=== PATIENT | male | born 1970 | race Caucasian/White ===

== ENCOUNTER 2020-03-30 16:13 | Inpatient (IN) | payer OTHER ==
[2020-03-30 17:47] VITALS: BMI 26.0
--- NOTE | 2020-03-30 18:36 | HP ---
COWS - Scale Resting Pulse: 0= [place] 80 or Below Sweatin=Flushed/Facial Moisture Restless Observation: 1= Difficult to Sit Still Pupil Size: 0= Normal to Room Light Bone or Joint Aches: 4=Acute Joint/Muscle Pain Runny Nose/ Eye Tearin= Runny Nose/Eyes GI Upset > 30mins: 2= Nausea/Diarrhea (diarrhea x 2) Tremor Observation: 4= Gross Tremor/Twitching Yawning Observation: 1= 1-2x During Session Anxiety or Irritability: 2=Irritable/Anxious Goose Flesh Skin: 3=Piloerection COWS Score: 21 CIWA Score Nausea/Vomitin Muscle Tremors: 5 Anxiety: 4-Mod. Anxious/Guarded Agitation: 3 Paroxysmal Sweats: 2 Orientation: 0-Oriented Tacttile Disturbances: 0-None Auditory Disturbances: 0-None Visual Disturbances: 0-None Headache: 3-Moderate CIWA-Ar Total Score: 19 - Admission Criteria OASAS Guidelines: Admission for Medically Managed Detox: Requires at least one of the followin. CIWA greater than 12 2. Seizures within the past 24 hours 3. Delirium tremens within the past 24 hours 4. Hallucinations within the past 24 hours 5. Acute intervention needed for co occurring medical disorder 6. Acute intervention needed for co occurring psychiatric disorder 7. Severe withdrawal that cannot be handled at a lower level of care (continued vomiting, continued diarrhea, abnormal vital signs) requiring intravenous medication and/or fluids 8. Admission [facility] Chief Complaint: Seeking admission to detox from alcohol and heroin Allergies/Adverse Reactions: Allergies Allergy/AdvReac Type Severity Reaction Status Date / Time No Known Allergies Allergy Verified 03/30/20 18:34 History of Present Illness: 49 years old male with a long history of alcohol dependence (since age 14 years) and heroin (since age 29 years) is seeking admission to detox. This is his first admission to [facility] and his last detox was at [facility]. He uses 6-8 bags of heroin intravenously and drinks 2 pints of vodka and 2 x 6 packs of malt liquor beer daily. He reports medical history of Hep. C, anemia and denies psych. history and suicidal ideation at this time. 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 He is unemployed, lives with family in [place] and denies legal issues at this time. Exam Limitations: No Limitations - Ebola screening Have you traveled outside of the country in the last 21 days: No Have you had contact with anyone from an Ebola affected area: No Have you been sick,other than usual withdrawal symptoms: No Do you have a fever: No - Review of Systems Constitutional: Chills, Malaise, Night Sweats, Changes in sleep EENT: reports: Nose Congestion Respiratory: reports: No Symptoms reported Cardiac: reports: No Symptoms Reported GI: reports: Diarrhea (x 2), Nausea, Poor Fluid Intake, Abdominal cramping : reports: No Symptoms Reported Musculoskeletal: reports: Back Pain, Muscle Pain Integumentary: reports: Dryness, Flushing Neuro: reports: Headache, Tremors Endocrine: reports: No Symptoms Reported Hematology: reports: No Symptoms Reported Psychiatric: reports: Mood/Affect Appropiate, Orientated x3 Other Systems: Reviewed and Negative Patient History - Patient Medical History Hx Anemia: Yes (Not on medication) Hx Asthma: No Hx Chronic Obstructive Pulmonary Disease (COPD): No Hx Cancer: No Hx Cardiac Disorders: No Hx Congestive Heart Failure: No Hx Hypertension: No Hx Hypercholesterolemia: No HX Cerebrovascular Accident: No Hx Seizures: No Hx Diabetes: No Hx Gastrointestinal Disorders: Yes (GERD) Hx Liver Disease: Yes (Hep. C) Hx Genitourinary Disorders: No Hx Sexually Transmitted Disorders: No Hx Renal Disease (ESRD): No Hx Thyroid Disease: No Hx Human Immunodeficiency Virus (HIV): No (Negative 2018) Hx Hepatitis C: Yes (Not treated) Hx Depression: No Hx Suicide Attempt: No (Denies uicidl ideation at this time) Hx Bipolar Disorder: No Hx Schizophrenia: No - Patient Surgical History Past Surgical History: Yes Hx Neurologic Surgery: No Hx Cataract Extraction: No Hx Cardiac Surgery: No Hx Lung Surgery: Yes (2009) Hx Abdominal Surgery: No Hx Appendectomy: No Hx Cholecystectomy: No Hx Genitourinary Surgery: No Hx Orthopedic Surgery: No Other Surgical History: Anesthesia Reaction: No - PPD History Previous Implant?: Yes Documented Results: Negative w/o proof Implanted On Prior R Admission?: No PPD to be Administered?: Yes - Reproductive History Patient is a Female of Child Bearing Age (11 -55 yrs old): No (Male) - Smoking Cessation Smoking history: Current every day smoker Have you smoked in the past 12 months: Yes Aproximately how many cigarettes per day: 20 Hx Chewing Tobacco Use: No Initiated information on smoking cessation: Yes 'Breaking Loose' booklet given: 03/30/20 - Substance & Tx. History Hx Alcohol Use: Yes Hx Substance Use: Yes Substance Use Type: Alcohol, Cocaine, Heroin, Marijuana Hx Substance Use Treatment: Yes ([facility]) - Substances abused Alcohol Substance route: Oral Frequency: Daily Amount used: 2 Pints Vodka and 2 x 6 packs of malt liquor beer Age of first use: 14 Date of last use: 03/30/20 Heroin Substance route: Injection Frequency: Daily Amount used: 6-8 bags of heroin Age of first use: 29 Date of last use: 03/30/20 Admission Physical Exam [facility] - Vital Signs Vital Signs: Vital Signs - 24 hr 03/30/20 17:45 Temperature 97.3 F L Pulse Rate 72 Respiratory 18 Rate Blood Pressure 120/71 - Physical General Appearance: Yes: Moderate Distress, Tremorous, Sweating, Anxious HEENTM: Yes: Within Normal Limits Respiratory: Yes: Lungs Clear, Normal Breath Sounds, No Respiratory Distress Neck: Yes: Within Normal Limits Breast: Yes: Breast Exam Deferred Cardiology: Yes: Regular Rhythm, Regular Rate Abdominal: Yes: Normal Bowel Sounds, Soft Genitourinary: Yes: Within Normal Limits Back: Yes: Normal Inspection Musculoskeletal: Yes: Back pain, Muscle Pain Extremities: Yes: Tremors Neurological: Yes: Within Normal Limits Integumentary: Yes: Warm, Track Elena (bilateral hands) Lymphatic: Yes: Within Normal Limits Cleared for Admission [facility] - Detox or Rehab [facility] Level of Care: Medically Managed Detox Regimen/Protocol: Methadone/Librium Claeared for Rehab Admission: No Breathalyzer - Breathalyzer Breathalyzer: 0 Urine Drug Screen - Test Device Lot number: [id number] Expiration date: 04/09/22 - Control Is test valid?: Yes - Results Drug screen NEGATIVE: No Urine drug screen results: THC-Marijuana, KARYN-Cocaine, FEN-Fentanyl, MOP- Opiates, BZO-Benzodiazepines Inpatient Rehab Admission - Rehab Decision to Admit Inpatient rehab admission?: No
[2020-03-30] MEDS ORDERED: BISMUTH SUBSALICYLATE 524 MG/30 ML UD PO PRN (19:00)
[2020-03-30] MEDS ORDERED: IBUPROFEN 400 MG TABLET (FP) PO PRN (19:00)
[2020-03-30] MEDS ORDERED: MAGNESIUM CITRATE 300 ML BOTTLE PO PRN (19:00)
[2020-03-30] MEDS ORDERED: ACETAMINOPHEN 325 MG TABLET (FP) PO PRN ×2 (19:00)
[2020-03-30] MEDS ORDERED: hydrOXYzine PAMOATE 25 MG CAPSULE (FP) PO PRN (19:00)
[2020-03-30] MEDS ORDERED: METHOCARBAMOL 500 MG TABLET PO PRN (19:00)
[2020-03-30] MEDS ORDERED: MAGNESIUM HYDROX 2400MG/30ML ORAL SUSPENSION 30 ML CUP PO PRN (19:00)
[2020-03-30] MEDS ORDERED: MENTHOL/PHENOL 1 EACH UD MM PRN (19:00)
[2020-03-30] MEDS ORDERED: MAG HYDROX/AL HYDROX/SIMETH 30 ML UNIT-DOSE CUP PO PRN (19:00)
[2020-03-30] MEDS ORDERED: cloNIDine HCL 0.1 MG TABLET PO PRN (19:00)
[2020-03-30] MEDS ORDERED: NICOTINE POLACRILEX 2 MG GUM BUC PRN (19:00)
[2020-03-30] MEDS ORDERED: ONDANSETRON *ODT* 4 MG TABLET SL ONE (19:30)
[2020-03-30] MEDS: chlordiazePOXIDE HCL 25 MG CAPSULE PO PRN (20:05)
[2020-03-30] MEDS: METHADONE HCL 10 MG TABLET (FOR DETOX USE ONLY) PO ONE ×2 (20:05→20:06)
[2020-03-30] MEDS: MELATONIN 5 MG TABLETS PO SCH (22:27)
[2020-03-30] MEDS: chlordiazePOXIDE HCL 25 MG CAPSULE PO SCH (22:28)
[2020-03-30] MEDS: THIAMINE HCL 100 MG TABLET (FP) PO SCH (22:28)
[2020-03-31] MEDS: chlordiazePOXIDE HCL 25 MG CAPSULE PO SCH ×4 (05:46→22:13)
[2020-03-31] MEDS ORDERED: METHADONE HCL 5 MG TABLET (FOR DETOX USE ONLY) ONE (09:04)
[2020-03-31] MEDS ORDERED: METHADONE HCL 10 MG TABLET (FOR DETOX USE ONLY) ONE (09:04)
[2020-03-31] MEDS ORDERED: METHADONE (DETOX) 20 MG, METHADONE (DETOX) 5 MG PO ONE (10:00)
[2020-03-31] MEDS: PRENATAL VITAMINS W/ FOLIC ACID TABLET (FP) PO SCH (10:14)
[2020-03-31] MEDS: NICOTINE 21 MG/24 HOURS TOPICAL PATCH TD SCH (10:16)
[2020-03-31 12:23] LABS: HEMATOCRIT 33.4 % (35.4-49); HEMOGLOBIN 10.8 GM/dL (11.7-16.9); MCH 26.2 pg (25.7-33.7); MCHC 32.3 g/dl (32.0-35.9); MEAN CELL VOLUME 81.1 fl (80-96); MEAN PLT VOLUME 10.8 fl (7.5-11.1); PLATELET COUNT 223 K/MM3 (134-434); RBC 4.12 M/mm3 (4.00-5.60); RDW 17.5 % (11.9-15.9); WHITE BLOOD COUNT 7.5 K/mm3 (4.0-10.0)
[2020-03-31 12:30] LABS: ALBUMIN 3.2 g/dl (3.4-5.0); BLOOD UREA NITROGEN 31.6 mg/dL (7-18); CALCIUM 8.6 mg/dL (8.5-10.1); CREATININE 1.1 mg/dL (0.55-1.3); POTASSIUM 4.3 mmol/L (3.5-5.1); TOT PROT 7.7 g/dl (6.4-8.2)
--- NOTE | 2020-03-31 12:55 | PN ---
S CIWA - CIWA Score Nausea/Vomitin-No Nausea/No Vomiting Muscle Tremors: 2 Anxiety: 3 Agitation: 1-Slight > Activity Paroxysmal Sweats: 3 Orientation: 0-Oriented Tacttile Disturbances: 0-None Auditory Disturbances: 0-None Visual Disturbances: 0-None Headache: 2-Mild CIWA-Ar Total Score: 11 BHS COWS - Scale Resting Pulse: 0= [place] 80 or Below Sweatin= Beads of Sweat on Face Restless Observation: 1= Difficult to Sit Still Pupil Size: 0= Normal to Room Light Bone or Joint Aches: 2= Severe Diffuse Aches Runny Nose/ Eye Tearin= None GI Upset > 30mins: 0= None Tremor Observation of Outstretched Hands: 2= Slight Tremor Visible Yawning Observation: 1= 1-2x During Session Anxiety or Irritability: 2=Irritable/Anxious Goose Flesh Skin: 0=Smooth Skin COWS Score: 11 S Progress Note (SOAP) Subjective: c/o sweats, anxiety, irritability, headache, muscle aches, and shakes. Objective: 03/31/20 12:54 Vital Signs 03/31/20 03/31/20 06:47 08:39 Temperature 97.5 F L 97.3 F L Pulse Rate 52 L 54 L Respiratory 18 18 Rate Blood Pressure 102/51 L 115/75 O2 Sat by Pulse 95 Oximetry (%) Laboratory Last Values WBC 7.5 K/mm3 (4.0-10.0) 03/31/20 07:15 RBC 4.12 M/mm3 (4.00-5.60) 03/31/20 07:15 Hgb 10.8 GM/dL (11.7-16.9) L 03/31/20 07:15 Hct 33.4 % (35.4-49) L 03/31/20 07:15 MCV 81.1 fl (80-96) 03/31/20 07:15 MCH 26.2 pg (25.7-33.7) 03/31/20 07:15 MCHC 32.3 g/dl (32.0-35.9) 03/31/20 07:15 RDW 17.5 % (11.9-15.9) H 03/31/20 07:15 Plt Count 223 K/MM3 (134-434) 03/31/20 07:15 MPV 10.8 fl (7.5-11.1) 03/31/20 07:15 Sodium 138 mmol/L (136-145) 03/31/20 07:15 Potassium 4.3 mmol/L (3.5-5.1) 03/31/20 07:15 Chloride 106 mmol/L (98-107) 03/31/20 07:15 Carbon Dioxide 25 mmol/L (21-32) 03/31/20 07:15 Anion Gap 7 MMOL/L (8-16) L 03/31/20 07:15 BUN 31.6 mg/dL (7-18) H 03/31/20 07:15 Creatinine 1.1 mg/dL (0.55-1.3) 03/31/20 07:15 Est GFR (CKD-EPI)AfAm 91.52 03/31/20 07:15 Est GFR (CKD-EPI)NonAf 78.96 03/31/20 07:15 Random Glucose 87 mg/dL (74-106) 03/31/20 07:15 Calcium 8.6 mg/dL (8.5-10.1) 03/31/20 07:15 Total Bilirubin 1.0 mg/dL (0.2-1) 03/31/20 07:15 AST 79 U/L (15-37) H 03/31/20 07:15 ALT 97 U/L (13-61) H 03/31/20 07:15 Alkaline Phosphatase 89 U/L (45-117) 03/31/20 07:15 Total Protein 7.7 g/dl (6.4-8.2) 03/31/20 07:15 Albumin 3.2 g/dl (3.4-5.0) L 03/31/20 07:15 Syphilis Serology Non-reactive (NONREACTIVE) 03/31/20 07:15 Labs noted with elevated AST/ALT. Assessment: 03/31/20 12:55 AOX3, in no acute respiratory distress. Full ROM, ambulating in the unit. Withdrawal symptoms. Elevated liver enzymes. 03/31/20 12:55 Plan: continue detox.
[2020-03-31] MEDS: chlordiazePOXIDE HCL 25 MG CAPSULE PO PRN (19:11)
[2020-03-31] MEDS: MELATONIN 5 MG TABLETS PO SCH (22:13)
[2020-03-31] MEDS: THIAMINE HCL 100 MG TABLET (FP) PO SCH (22:13)
[2020-04-01] MEDS: chlordiazePOXIDE HCL 25 MG CAPSULE PO SCH ×4 (06:10→22:14)
[2020-04-01] MEDS ORDERED: METHADONE HCL 10 MG TABLET (FOR DETOX USE ONLY) PO ONE (10:00)
[2020-04-01] MEDS: PRENATAL VITAMINS W/ FOLIC ACID TABLET (FP) PO SCH (10:24)
[2020-04-01] MEDS: NICOTINE 21 MG/24 HOURS TOPICAL PATCH TD SCH (10:25)
--- NOTE | 2020-04-01 12:34 | PN ---
S CIWA - CIWA Score Nausea/Vomitin-Mild Nausea/No Vomiting Muscle Tremors: 2 Anxiety: 2 Agitation: 0-Normal Activity Paroxysmal Sweats: No Perspiration Orientation: 0-Oriented Tacttile Disturbances: 0-None Auditory Disturbances: 0-None Visual Disturbances: 2-Mild Sensitivity Headache: 1-Very Mild CIWA-Ar Total Score: 8 S COWS - Scale Resting Pulse: 0= [place] 80 or Below Sweatin= Chills/Flushing Restless Observation: 0= Sits Still Pupil Size: 1= Pupils >than Normal Bone or Joint Aches: 1= Mild Discomfort Runny Nose/ Eye Tearin= None GI Upset > 30mins: 1= Stomach Cramp Tremor Observation of Outstretched Hands: 2= Slight Tremor Visible Yawning Observation: 0= None Anxiety or Irritability: 2=Irritable/Anxious Goose Flesh Skin: 0=Smooth Skin COWS Score: 8 S Progress Note (SOAP) Subjective: 49 years old male was admitted on 03/30/20 for alcohol and opiate withdrawal sx management treating with librium and methadone detox regiment mr barber prefers to go to methadone program and last visit on 2013 and was doing well mr barber arranges aftercare with counselor to [facility] for possible suboxone as medication assisted treatment program Objective: 04/01/20 12:36 Vital Signs - 24 hr 03/31/20 03/31/20 03/31/20 12:38 16:37 20:29 Temperature 96.9 F L 97.1 F L 97.1 F L Pulse Rate 51 L 51 L 52 L Respiratory 18 18 18 Rate Blood Pressure 119/81 105/72 116/64 O2 Sat by Pulse 99 100 Oximetry (%) 04/01/20 04/01/20 06:08 08:42 Temperature 96.9 F L 96.4 F L Pulse Rate 49 L 61 Respiratory 18 18 Rate Blood Pressure 100/66 101/66 O2 Sat by Pulse 96 96 Oximetry (%) Laboratory Tests 03/31/20 03/31/20 03/31/20 07:15 07:15 07:15 WBC 7.5 RBC 4.12 Hgb 10.8 L Hct 33.4 L MCV 81.1 MCH 26.2 MCHC 32.3 RDW 17.5 H Plt Count 223 MPV 10.8 Sodium 138 Potassium 4.3 Chloride 106 Carbon Dioxide 25 Anion Gap 7 L BUN 31.6 H Creatinine 1.1 Est GFR (CKD-EPI)AfAm 91.52 Est GFR (CKD-EPI)NonAf 78.96 Random Glucose 87 Calcium 8.6 Total Bilirubin 1.0 AST 79 H ALT 97 H Alkaline Phosphatase 89 Total Protein 7.7 Albumin 3.2 L Syphilis Serology Non-reactive covid pending Assessment: 04/01/20 12:36 alcohol and opiate withdrawal Plan: librium and methadone regiment s
[2020-04-01] MEDS: MELATONIN 5 MG TABLETS PO SCH (22:13)
[2020-04-01] MEDS: THIAMINE HCL 100 MG TABLET (FP) PO SCH (22:13)
[2020-04-02] MEDS ORDERED: chlordiazePOXIDE HCL 10 MG CAPSULE PO PRN
[2020-04-02] MEDS: chlordiazePOXIDE HCL 10 MG CAPSULE PO SCH ×4 (05:58→22:27)
[2020-04-02] MEDS ORDERED: METHADONE HCL 10 MG TABLET (FOR DETOX USE ONLY) ONE (08:45)
[2020-04-02] MEDS ORDERED: METHADONE HCL 5 MG TABLET (FOR DETOX USE ONLY) ONE (08:45)
[2020-04-02] MEDS ORDERED: METHADONE (DETOX) 10 MG, METHADONE (DETOX) 5 MG PO ONE (10:00)
[2020-04-02] MEDS: NICOTINE 21 MG/24 HOURS TOPICAL PATCH TD SCH (10:14)
[2020-04-02] MEDS: PRENATAL VITAMINS W/ FOLIC ACID TABLET (FP) PO SCH (10:14)
--- NOTE | 2020-04-02 11:08 | PN ---
[facility] CIWA - CIWA Score Nausea/Vomitin-No Nausea/No Vomiting Muscle Tremors: 1-None Visible, but [place] Anxiety: 2 Agitation: 0-Normal Activity Paroxysmal Sweats: No Perspiration Orientation: 0-Oriented Tacttile Disturbances: 0-None Auditory Disturbances: 0-None Visual Disturbances: 1-Very Mild Sensitivity Headache: 1-Very Mild CIWA-Ar Total Score: 5 S COWS - Scale Resting Pulse: 0= [place] 80 or Below Sweatin= No chills or Flushing Restless Observation: 0= Sits Still Pupil Size: 1= Pupils >than Normal Bone or Joint Aches: 1= Mild Discomfort Runny Nose/ Eye Tearin= None GI Upset > 30mins: 0= None Tremor Observation of Outstretched Hands: 1= Tremor [place], Not Seen Yawning Observation: 0= None Anxiety or Irritability: 2=Irritable/Anxious Goose Flesh Skin: 0=Smooth Skin COWS Score: 5 S Progress Note (SOAP) Subjective: 49 years old male was admitted on 03/30/20 for alcohol and opiate withdrawal sx management treating with librium and methadone detox regiment feels ok today less tremor mild general body aches Objective: 04/02/20 11:20 Vital Signs - 24 hr 04/01/20 04/01/20 04/01/20 12:43 16:27 20:14 Temperature 96.8 F L 96.9 F L 97.1 F L Pulse Rate 66 58 L 54 L Respiratory 18 18 18 Rate Blood Pressure 120/78 109/70 106/76 O2 Sat by Pulse 98 96 Oximetry (%) 04/02/20 04/02/20 05:55 08:40 Temperature 98.1 F 98.6 F Pulse Rate 50 L 52 L Respiratory 20 16 Rate Blood Pressure 105/69 109/69 O2 Sat by Pulse 100 Oximetry (%) Laboratory Tests 03/30/20 03/31/20 03/31/20 18:50 07:15 07:15 WBC 7.5 RBC 4.12 Hgb 10.8 L Hct 33.4 L MCV 81.1 MCH 26.2 MCHC 32.3 RDW 17.5 H Plt Count 223 MPV 10.8 Sodium Potassium Chloride Carbon Dioxide Anion Gap BUN Creatinine Est GFR (CKD-EPI)AfAm Est GFR (CKD-EPI)NonAf Random Glucose Calcium Total Bilirubin AST ALT Alkaline Phosphatase Total Protein Albumin Syphilis Serology Non-reactive COVID-19 (TANIA) Not detected 03/31/20 07:15 WBC RBC Hgb Hct MCV MCH MCHC RDW Plt Count MPV Sodium 138 Potassium 4.3 Chloride 106 Carbon Dioxide 25 Anion Gap 7 L BUN 31.6 H Creatinine 1.1 Est GFR (CKD-EPI)AfAm 91.52 Est GFR (CKD-EPI)NonAf 78.96 Random Glucose 87 Calcium 8.6 Total Bilirubin 1.0 AST 79 H ALT 97 H Alkaline Phosphatase 89 Total Protein 7.7 Albumin 3.2 L Syphilis Serology COVID-19 (TANIA) bun elevation repeat bun 04/02/20 11:21 04/02/20 11:22 Assessment: 04/02/20 11:22 alcohol and opiate withdrawal Plan: librium and methadone regiments
--- NOTE | 2020-04-02 18:28 | EKG ---
Test Reason : Blood Pressure : / mmHG Vent. Rate : 049 BPM Atrial Rate : 049 BPM P-R Int : 122 ms QRS Dur : 096 ms QT Int : 450 ms P-R-T Axes : 068 059 056 degrees QTc Int : 406 ms SINUS BRADYCARDIA OTHERWISE NORMAL ECG NO PREVIOUS ECGS AVAILABLE Confirmed by JIGNESH SHARMA MD ([id number]) on 04/02/2020 6:28:12 PM Referred By: Confirmed By:JIGNESH SHARMA MD
[2020-04-02] MEDS: THIAMINE HCL 100 MG TABLET (FP) PO SCH (22:27)
[2020-04-02] MEDS: MELATONIN 5 MG TABLETS PO SCH (22:28)
[2020-04-03] MEDS: chlordiazePOXIDE HCL 10 MG CAPSULE PO SCH ×2 (05:53→18:20)
[2020-04-03] MEDS ORDERED: METHADONE HCL 10 MG TABLET (FOR DETOX USE ONLY) PO ONE (10:00)
[2020-04-03] MEDS: PRENATAL VITAMINS W/ FOLIC ACID TABLET (FP) PO SCH (10:20)
[2020-04-03] MEDS: NICOTINE 21 MG/24 HOURS TOPICAL PATCH TD SCH (10:20)
--- NOTE | 2020-04-03 11:56 | PN ---
[facility] CIWA - CIWA Score Nausea/Vomitin-No Nausea/No Vomiting Muscle Tremors: 1-None Visible, but [place] Anxiety: 1-Mildly Anxious Agitation: 0-Normal Activity Paroxysmal Sweats: No Perspiration Orientation: 0-Oriented Tacttile Disturbances: 0-None Auditory Disturbances: 0-None Visual Disturbances: 1-Very Mild Sensitivity Headache: 0-None Present CIWA-Ar Total Score: 3 S COWS - Scale Resting Pulse: 0= [place] 80 or Below Sweatin= No chills or Flushing Restless Observation: 0= Sits Still Pupil Size: 0= Normal to Room Light Bone or Joint Aches: 1= Mild Discomfort Runny Nose/ Eye Tearin= None GI Upset > 30mins: 0= None Tremor Observation of Outstretched Hands: 1= Tremor [place], Not Seen Yawning Observation: 0= None Anxiety or Irritability: 1=Feels Anxious/Irritable Goose Flesh Skin: 0=Smooth Skin COWS Score: 3 S Progress Note (SOAP) Subjective: 49 years old male was admitted on 03/30/20 for alcohol and opiate withdrawal sx management treating with librium and methadone detox regiment feels better today less tremor mild anxiety discuss aftercare with staff mr barber prefers elev-8 for alcohol and opiate abuse treatment requests ensure order ensure for satisfaction Objective: 04/03/20 12:24 Vital Signs - 24 hr 04/02/20 04/02/20 04/02/20 12:40 16:32 20:44 Temperature 97.1 F L 97.9 F 98.1 F Pulse Rate 79 58 L 81 Respiratory 18 18 18 Rate Blood Pressure 111/77 120/79 119/79 O2 Sat by Pulse 99 99 99 Oximetry (%) 04/03/20 04/03/20 08:42 09:07 Temperature 98.4 F 97.3 F L Pulse Rate 51 L 59 L Respiratory 18 18 Rate Blood Pressure 110/72 93/58 L O2 Sat by Pulse 96 Oximetry (%) Laboratory Tests 03/30/20 03/31/20 03/31/20 18:50 07:15 07:15 WBC 7.5 RBC 4.12 Hgb 10.8 L Hct 33.4 L MCV 81.1 MCH 26.2 MCHC 32.3 RDW 17.5 H Plt Count 223 MPV 10.8 Sodium Potassium Chloride Carbon Dioxide Anion Gap BUN Creatinine Est GFR (CKD-EPI)AfAm Est GFR (CKD-EPI)NonAf Random Glucose Calcium Total Bilirubin AST ALT Alkaline Phosphatase Total Protein Albumin Syphilis Serology Non-reactive COVID-19 ([facility]ANIA) Not detected 03/31/20 07:15 WBC RBC Hgb Hct MCV MCH MCHC RDW Plt Count MPV Sodium 138 Potassium 4.3 Chloride 106 Carbon Dioxide 25 Anion Gap 7 L BUN 31.6 H Creatinine 1.1 Est GFR (CKD-EPI)AfAm 91.52 Est GFR (CKD-EPI)NonAf 78.96 Random Glucose 87 Calcium 8.6 Total Bilirubin 1.0 AST 79 H ALT 97 H Alkaline Phosphatase 89 Total Protein 7.7 Albumin 3.2 L Syphilis Serology COVID-19 (TANIA) 04/03/20 12:25 repeat bun been cancelled Assessment: 04/03/20 12:25 alcohol and opiate withdrawal Plan: librium and methadone regiments
[2020-04-03 21:47] VITALS: PULSE 57
[2020-04-03] MEDS: THIAMINE HCL 100 MG TABLET (FP) PO SCH (22:16)
[2020-04-03] MEDS: MELATONIN 5 MG TABLETS PO SCH (22:17)
[2020-04-04] MEDS ORDERED: chlordiazePOXIDE HCL 10 MG CAPSULE PO ONE (05:00)
[2020-04-04] MEDS ORDERED: METHADONE HCL 5 MG TABLET (FOR DETOX USE ONLY) PO ONE (06:00)
[2020-04-04 07:16] VITALS: BP 104/58; TEMP 96.8
[2020-04-04] MEDS: NICOTINE 21 MG/24 HOURS TOPICAL PATCH TD SCH (09:44)
[2020-04-04] MEDS: PRENATAL VITAMINS W/ FOLIC ACID TABLET (FP) PO SCH (09:44)
--- NOTE | 2020-04-04 10:54 | DS ---
[facility] Detox Discharge Summary Admission Date: 03/30/20 Discharge Date: 04/04/20 - History Present History: Alcohol Dependence, Opioid Dependence Additional Comments: 49 years old male was admitted on 03/30/20 for alcohol and opiate withdrawal sx management treated with librum and methadone detox regiments mr barber has completed librium and methadone regiments and is tolerated well General Appearance: Yes: no Distress, mild Tremorous, no Sweating, mild Anxious HEENTM: Yes: Within Normal Limits Respiratory: Yes: Lungs Clear, Normal Breath Sounds, No Respiratory Distress Neck: Yes: Within Normal Limits Breast: Yes: Breast Exam Deferred Cardiology: Yes: Regular Rhythm, Regular Rate Abdominal: Yes: Normal Bowel Sounds, Soft Genitourinary: Yes: Within Normal Limits Back: Yes: Normal Inspection Musculoskeletal: Yes: Back pain, Muscle Pain Extremities: Yes: Tremors Neurological: Yes: Within Normal Limits Integumentary: Yes: Warm, Track Elena (bilateral hands) Lymphatic: Yes: Within Normal Limits Pertinent Past History: time for discharge 34 minutes - Physical Exam Results Vital Signs: Vital Signs Temperature 96.8 F L 04/04/20 05:55 Pulse Rate 57 L 04/04/20 05:55 Respiratory Rate 20 04/04/20 05:55 Blood Pressure 104/58 L 04/04/20 05:55 O2 Sat by Pulse Oximetry (%) 99 04/04/20 05:55 Pertinent Admission Physical Exam Findings: alcohol and opiate withdrawal Laboratory Tests 03/30/20 03/31/20 03/31/20 18:50 07:15 07:15 WBC 7.5 RBC 4.12 Hgb 10.8 L Hct 33.4 L MCV 81.1 MCH 26.2 MCHC 32.3 RDW 17.5 H Plt Count 223 MPV 10.8 Sodium Potassium Chloride Carbon Dioxide Anion Gap BUN Creatinine Est GFR (CKD-EPI)AfAm Est GFR (CKD-EPI)NonAf Random Glucose Calcium Total Bilirubin AST ALT Alkaline Phosphatase Total Protein Albumin Syphilis Serology Non-reactive COVID-19 (TANIA) Not detected 03/31/20 07:15 WBC RBC Hgb Hct MCV MCH MCHC RDW Plt Count MPV Sodium 138 Potassium 4.3 Chloride 106 Carbon Dioxide 25 Anion Gap 7 L BUN 31.6 H Creatinine 1.1 Est GFR (CKD-EPI)AfAm 91.52 Est GFR (CKD-EPI)NonAf 78.96 Random Glucose 87 Calcium 8.6 Total Bilirubin 1.0 AST 79 H ALT 97 H Alkaline Phosphatase 89 Total Protein 7.7 Albumin 3.2 L Syphilis Serology COVID-19 (TANIA) mr barber will follow up bun serum elevation with aftercare [id number] - Treatment Hospital Course: Detox Protocol Followed, Detoxed Safely, Responded well, Discharged Condition Good, Rehab Referral Accepted Patient has Accepted a Rehab Referral to: [facility] - Medication Discharge Medications: Ambulatory Orders Naloxone HCl [Narcan] 4 mg NS ASDIR PRN #1 spray 04/01/20 - Diagnosis (1) Alcohol dependence, uncomplicated Status: Acute (2) Opioid dependence, uncomplicated Status: Acute (3) Substance induced mood disorder Status: Suspected (4) Nicotine dependence with withdrawal Status: Acute Qualifiers: Nicotine product type: cigarettes Qualified Code(s): F17.213 - Nicotine dependence, cigarettes, with withdrawal - AMA Did Patient Leave Against Medical Advice: No CIWA Score - CIWA Score Nausea/Vomitin-No Nausea/No Vomiting Muscle Tremors: 1-None Visible, but [place] Anxiety: 1-Mildly Anxious Agitation: 0-Normal Activity Paroxysmal Sweats: No Perspiration Orientation: 0-Oriented Tacttile Disturbances: 0-None Auditory Disturbances: 0-None Visual Disturbances: 0-None Headache: 0-None Present CIWA-Ar Total Score: 2 COWS (PN) - Opiate Withdrawal Resting Pulse: 0= [place] 80 or Below Sweatin= No chills or Flushing Restless Observation: 0= Sits Still Pupil Size: 0= Normal to Room Light Bone or Joint Aches: 0= None Runny Nose/ Eye Tearin= None GI Upset > 30mins: 0= None Tremor Observation of Outstretched Hands: 1= Tremor [place], Not Seen Yawning Observation: 0= None Anxiety or Irritability: 1=Feels Anxious/Irritable Goose Flesh Skin: 0=Smooth Skin COWS Score: 2
== END 2020-04-04 08:36 | disposition home or self-care (01) | DRG 773 ==
LOC: YASAS 16:13 → Y3N 18:45
PROVIDERS: ADMIT Allergy & Immunology; ATTEND Allergy & Immunology
PROC: HZ2ZZZZ Detoxification Services for Substance Abuse Treatment (ICD-10-PCS; principal; 2020-03-30)
DX: F10.230 Alcohol dependence with withdrawal, uncomplicated (principal); F11.23 Opioid dependence with withdrawal; F14.20 Cocaine dependence, uncomplicated; F12.20 Cannabis dependence, uncomplicated; F17.213 Nicotine dependence, cigarettes, with withdrawal; F19.24 Other psychoactive substance dependence with psychoactive substance-induced mood disorder; D64.9 Anemia, unspecified; B18.2 Chronic viral hepatitis C; K21.9 Gastro-esophageal reflux disease without esophagitis; R74.0 Nonspecific elevation of levels of transaminase and lactic acid dehydrogenase [LDH]
CPT/HCPCS: 36415; 80053; 85027; 86780; 93005; 93010; U0003

== ENCOUNTER 2021-09-23 12:59 | Inpatient (IN) | payer OTHER ==
[2021-09-23 15:46] VITALS: BMI 23.4
[2021-09-23] MEDS ORDERED: METHOCARBAMOL 500 MG TABLET PO PRN (16:00)
[2021-09-23] MEDS ORDERED: LOPERAMIDE HCL 2 MG CAPSULE PO PRN (16:00)
[2021-09-23] MEDS ORDERED: BISMUTH SUBSALICYLATE 524 MG/30 ML PO PRN (16:00)
[2021-09-23] MEDS ORDERED: ONDANSETRON *ODT* 4 MG TABLET SL PRN (16:00)
[2021-09-23] MEDS ORDERED: MENTHOL/PHENOL 1 EACH UD MM PRN (16:00)
[2021-09-23] MEDS ORDERED: MAGNESIUM HYDROX 2400MG/30ML ORAL SUSPENSION 30 ML CUP PO PRN (16:00)
[2021-09-23] MEDS ORDERED: MAGNESIUM CITRATE 300 ML BOTTLE PO PRN (16:00)
[2021-09-23] MEDS ORDERED: NICOTINE 10 MG CARTRIDGE (INHALER) IH PRN (16:00)
[2021-09-23] MEDS ORDERED: ACETAMINOPHEN 325 MG TABLET (FP) PO PRN ×2 (16:00)
[2021-09-23] MEDS ORDERED: IBUPROFEN 400 MG TABLET (FP) PO PRN (16:00)
[2021-09-23] MEDS ORDERED: LORazepam 1 MG TABLET PO PRN (16:00)
[2021-09-23] MEDS ORDERED: cloNIDine HCL 0.1 MG TABLET PO PRN (16:00)
[2021-09-23] MEDS ORDERED: MAG HYDROX/AL HYDROX/SIMETH 30 ML UNIT-DOSE CUP PO PRN (16:00)
[2021-09-23] MEDS: hydrOXYzine PAMOATE 25 MG CAPSULE (FP) PO SCH ×2 (20:22→22:38)
[2021-09-23] MEDS ORDERED: methaDONE HCL 10 MG TABLET (FOR DETOX USE ONLY) PO ONE (20:30)
[2021-09-23] MEDS: THIAMINE HCL 100 MG TABLET (FP) PO SCH (22:38)
[2021-09-23] MEDS: MELATONIN 5 MG TABLETS PO SCH (22:38)
[2021-09-23] MEDS: LORazepam 2 MG TABLET PO SCH (22:39)
[2021-09-24] MEDS: LORazepam 2 MG TABLET PO SCH ×4 (05:03→23:51)
[2021-09-24] MEDS: hydrOXYzine PAMOATE 25 MG CAPSULE (FP) PO SCH ×5 (05:04→23:51)
[2021-09-24] MEDS ORDERED: methaDONE HCL 10 MG TABLET (FOR DETOX USE ONLY) ONE (09:23)
[2021-09-24 12:24] LABS: HEMATOCRIT 27.1 % (35.4-49); HEMOGLOBIN 8.8 GM/dL (11.7-16.9); MCH 23.9 pg (25.7-33.7); MCHC 32.3 g/dl (32.0-35.9); MEAN CELL VOLUME 73.9 fl (80-96); MEAN PLT VOLUME 10.4 fl (7.5-11.1); PLATELET COUNT 237 10^3/uL (134-434); RBC 3.67 M/mm3 (4.00-5.60); RDW 19.9 % (11.9-15.9); WHITE BLOOD COUNT 5.7 K/mm3 (4.0-10.0)
[2021-09-24] MEDS: PRENATAL VITAMINS W/ FOLIC ACID TABLET (FP) PO SCH (12:37)
[2021-09-24 13:02] LABS: ALBUMIN 2.9 g/dl (3.4-5.0); BLOOD UREA NITROGEN 37.6 mg/dL (7-18)
[2021-09-24 13:05] LABS: CREATININE 1.1 mg/dL (0.55-1.3)
[2021-09-24 13:07] LABS: BILIRUBIN,TOTAL 0.2 mg/dL (0.2-1); TOT PROT 7.8 g/dl (6.4-8.2)
[2021-09-24] MEDS: MELATONIN 5 MG TABLETS PO SCH (23:51)
[2021-09-24] MEDS: THIAMINE HCL 100 MG TABLET (FP) PO SCH (23:52)
[2021-09-25] MEDS: LORazepam 1 MG TABLET PO SCH ×4 (05:23→22:41)
[2021-09-25] MEDS: hydrOXYzine PAMOATE 25 MG CAPSULE (FP) PO SCH ×5 (05:23→22:41)
[2021-09-25] MEDS ORDERED: methaDONE HCL 10 MG TABLET (FOR DETOX USE ONLY) PO ONE (10:00)
[2021-09-25] MEDS: PRENATAL VITAMINS W/ FOLIC ACID TABLET (FP) PO SCH (10:14)
[2021-09-25] MEDS: FERROUS SO4 325 MG TABLET (FP) PO SCH ×2 (12:55→18:15)
[2021-09-25] MEDS: MELATONIN 5 MG TABLETS PO SCH (22:41)
[2021-09-25] MEDS: THIAMINE HCL 100 MG TABLET (FP) PO SCH (22:41)
[2021-09-26] MEDS ORDERED: LORazepam 0.5 MG TABLET PO PRN
[2021-09-26] MEDS: LORazepam 0.5 MG TABLET PO SCH ×4 (05:23→23:03)
[2021-09-26] MEDS: hydrOXYzine PAMOATE 25 MG CAPSULE (FP) PO SCH ×5 (05:23→23:03)
[2021-09-26] MEDS: FERROUS SO4 325 MG TABLET (FP) PO SCH ×3 (07:03→17:51)
[2021-09-26] MEDS ORDERED: methaDONE HCL 10 MG TABLET (FOR DETOX USE ONLY) ONE (09:09)
[2021-09-26] MEDS: PRENATAL VITAMINS W/ FOLIC ACID TABLET (FP) PO SCH (10:45)
[2021-09-26 11:10] LABS: SARS-CoV-2 NAA Not Detected (Not Detected)
[2021-09-26 21:00] VITALS: TEMP 97.1
[2021-09-26] MEDS: THIAMINE HCL 100 MG TABLET (FP) PO SCH (23:03)
[2021-09-26] MEDS: MELATONIN 5 MG TABLETS PO SCH (23:03)
[2021-09-27] MEDS ORDERED: LORazepam 0.5 MG TABLET PO ONE (05:00)
[2021-09-27] MEDS: hydrOXYzine PAMOATE 25 MG CAPSULE (FP) PO SCH (05:36)
[2021-09-27 06:38] VITALS: BP 133/82; PULSE 68
[2021-09-27] MEDS: FERROUS SO4 325 MG TABLET (FP) PO SCH (08:00)
[2021-09-27] MEDS ORDERED: methaDONE HCL 10 MG TABLET (FOR DETOX USE ONLY) PO ONE (10:00)
== END 2021-09-27 09:19 | disposition home or self-care (01) | DRG 773 ==
LOC: YASAS 12:59 → Y3N 19:44
PROVIDERS: ADMIT Allergy & Immunology; ATTEND Allergy & Immunology
PROC: HZ2ZZZZ Detoxification Services for Substance Abuse Treatment (ICD-10-PCS; principal; 2021-09-23)
DX: F11.23 Opioid dependence with withdrawal (principal); F10.230 Alcohol dependence with withdrawal, uncomplicated; F14.20 Cocaine dependence, uncomplicated; F12.20 Cannabis dependence, uncomplicated; F17.210 Nicotine dependence, cigarettes, uncomplicated; D64.9 Anemia, unspecified; G47.00 Insomnia, unspecified; B18.2 Chronic viral hepatitis C
CPT/HCPCS: 36415; 80053; 82607; 82746; 83540; 83550; 85027; 85045; 86780; C9803; J0735; U0003; U0005